=== PATIENT | female | born 1950 | race Caucasian/White ===

== ENCOUNTER → 2021-12-24 | Outpatient (CLI) | payer MEDICARE ==
[~2021-12-24] MED LIST: IOHEXOL-350 75 ML VIAL IV ONE
== END | disposition home or self-care (01) ==
LOC: RAH 09:17
PROVIDERS: ATTEND Internal Medicine Critical Care Medicine
DX: G57.21 Lesion of femoral nerve, right lower limb (principal)
CPT/HCPCS: 72193; Q9967

== ENCOUNTER 2022-10-06 08:29 | Emergency (ER) | payer MEDICARE ==
[~2022-10-06] VITALS: Ht 157.5 cm; Wt 64.0 kg
[2022-10-06] MEDS ORDERED: ACETAMINOPHEN 500 MG TABLET PO STA (08:40)
[2022-10-06] MEDS ORDERED: ACET-66 PO (09:37)
[2022-10-06 09:45] VITALS: BP 137/66
== END 2022-10-06 09:57 | disposition home or self-care (01) ==
LOC: EDH 08:29
DX: S50.02XA Contusion of left elbow, initial encounter (principal); Z85.038 Personal history of other malignant neoplasm of large intestine; Z90.49 Acquired absence of other specified parts of digestive tract; Z98.890 Other specified postprocedural states; Z88.8 Allergy status to other drugs, medicaments and biological substances; W03.XXXA Other fall on same level due to collision with another person, initial encounter; Y93.89 Activity, other specified; Y92.89 Other specified places as the place of occurrence of the external cause; Y99.8 Other external cause status
CPT/HCPCS: 70450; 72125; 73070